=== PATIENT | female | born 1975 | race Caucasian/White ===

== ENCOUNTER 2016-10-31 16:56 | Emergency (ER) | payer SELFPAY ==
[~2016-10-31] VITALS: Ht 165.1 cm; Wt 47.2 kg
[2016-10-31] MEDS ORDERED: predniSONE 10 MG TABLET PO ONE (17:00)
[2016-10-31] MEDS ORDERED: IPRATRPIUM/ALBUTEROL 0.5/2.5MG 3 ML NEBU. NEB ONE (17:00)
--- NOTE | 2016-10-31 17:49 | PHYS DOC ---
Past Medical History Past Medical History: Anxiety Past Surgical History: Tubal ligation Alcohol Use: None Drug Use: Methamphetamine Adult General Chief Complaint Chief Complaint: SHORTNESS OF BREATH HPI HPI Patient is a 41 year old female with a history of COPD who continues to smoke presents with complaints of shortness of air consistent with previous COPD exacerbations. Patient denies any chest pain, neck pain, abdominal pain. Patient describes productive cough. Denies any fevers, chills, rashes, sick contacts. Review of Systems Review of Systems Constitutional: Denies fever or chills [] HENT: Denies nasal congestion or sore throat [] Respiratory: Yes to shortness of breath and productive cough Cardiovascular: No chest pain GI: Denies abdominal pain, nausea, vomiting, bloody stools or diarrhea [] : Denies dysuria or hematuria [] Musculoskeletal: Denies back pain or joint pain [] Integument: Denies rash or skin lesions [] Neurologic: Denies headache, focal weakness or sensory changes [] Current Medications Current Medications Current Medications Medications (Trade) Dose Ordered Sig/Yamilet Start Time Stop Time Status Last Admin Dose Admin Albuterol/ Ipratropium (Duoneb) 3 ml 1X ONCE 10/31/16 17:00 10/31/16 17:03 DC Prednisone (Prednisone) 50 mg 1X ONCE 10/31/16 17:00 10/31/16 17:03 DC 10/31/16 17:57 50 MG Allergies Allergies Allergies Coded Allergies Type Severity Reaction Last Updated Verified No Known Drug Allergies 02/02/15 No Physical Exam Physical Exam Constitutional: Well developed, well nourished, mild distress, non-toxic appearance. [] HENT: Normocephalic, atraumatic, bilateral external ears normal, oropharynx moist, no oral exudates, nose normal. [] Eyes: EOMI, conjunctiva normal, no discharge. [] Neck: Normal range of motion, no tenderness, supple, no stridor. No LAD, no meningeal signs Cardiovascular:Heart rate regular rhythm, no murmur, equal pulses, normal perfusion Lungs & Thorax: Bilateral breath sounds clear to auscultation, poor air movement, no wheezing/rales/rhonchi Abdomen: Bowel sounds normal, soft, no tenderness, Skin: Warm, dry, no erythema, no rash. [] Back: No tenderness, no CVA tenderness. [] Extremities: No tenderness, no cyanosis, no DVT, ROM intact, no edema. [] Neurologic: Alert and oriented X 3, normal motor function, ambulates without difficulty and with normal gait, no focal deficits noted. [] Psychologic: Affect normal, judgement normal, mood normal. [] Current Patient Data Vital Signs Vital Signs Date Time Temp Pulse Resp B/P (MAP) Pulse Ox O2 Delivery O2 Flow Rate FiO2 10/31/16 16:56 98.4 91 23 136/82 (100) 93 Room Air 98.4 EKG EKG [] Radiology/Procedures Radiology/Procedures preliminary read: copd pattern without infiltrate/pneumothorax[] Course & Med Decision Making Course & Med Decision Making Pertinent Labs and Imaging studies reviewed. (See chart for details) 1801 pt feels much improved and requests discharge home. I have done extensive counseling regarding smoking cessation and risk and benefits have been expect to the patient. Risks include heart disease, stroke, cancer, vascular disease, COPD exacerbation, . Time spent counseling is approximately 3 minutes. [] Dragon Disclaimer Dragon Disclaimer This electronic medical record was generated, in whole or in part, using a voice recognition dictation system. Departure Departure Impression: Primary Impression: COPD with acute exacerbation Additional Impressions: Tobacco abuse Tobacco abuse counseling Disposition: HOME, SELF-CARE Condition: IMPROVED Referrals: NO PCP (PCP) Please follow with your doctor or one of the clinics in the list provided to you for recheck and reevaluation in 2-4 days. If your symptoms worsen or new concerning symptoms develop please return to the ED immediately. Please do not smoke anymore as we discussed. Patient Instructions: Chronic Obstructive Pulmonary Disease Exacerbation, Smoking, You Can Quit, [id number] Scripts Albuterol Sulfate (VENTOLIN HFA INHALER) 18 Gm Hfa.aer.ad 2 PUFF INH Q4HRS Y for as, #1 INHALER 0 Refills Prov: Ramsey WALKER MD 10/31/16 Minocycline Hcl (MINOCYCLINE HCL) 100 Mg Capsule 1 CAP PO BID for 7 Days, #14 CAP 3 Refills Prov: Ramsey WALKER MD 10/31/16 Prednisone (PREDNISONE) 20 Mg Tablet 40 MG PO DAILY for 5 Days, #10 TAB Prov: Ramsey WALKER MD 10/31/16 Problem Qualifiers Ramsey WALKER MD Oct 31, 2016 17:49
[2016-10-31 17:53] VITALS: BP 127/97
[2016-10-31] MEDS ORDERED: MINO100C PO (18:18)
[2016-10-31] MEDS ORDERED: PRED20TA PO (18:18)
[2016-10-31] MEDS ORDERED: VENTOLIN HFA18 GM INH (18:18)
--- NOTE | 2016-11-01 09:16 | RAD ---
Examination: 2 views of the chest. History: History of cough, wheezing. Comparison: 02/02/2015 Findings: The cardiomediastinal silhouette grossly appears unremarkable. Diffuse hyperinflated lungs likely changes of COPD. There is no acute infiltrate or visualize pneumothorax. Impression 1. Changes of COPD identified.
== END 2016-10-31 18:34 | disposition home or self-care (01) ==
LOC: ER 16:56
DX: J44.1 Chronic obstructive pulmonary disease with (acute) exacerbation (principal); F17.200 Nicotine dependence, unspecified, uncomplicated; Z71.6 Tobacco abuse counseling
CPT/HCPCS: 71020; 94250; 94640; 99284; J7512; J7620

== ENCOUNTER → 2017-04-28 | Outpatient (CLI) | payer OTHER ==
[2017-04-28] MEDS: ALBUTEROL SULFATE 2.5 MG/3 ML NEBU. NEB (08:53)
== END | disposition home or self-care (01) ==
LOC: PF 08:13
DX: J44.9 Chronic obstructive pulmonary disease, unspecified (principal)
CPT/HCPCS: 94060; 94640; 94729; J7613